=== PATIENT | female | born 1935 | race Caucasian/White ===

== ENCOUNTER 2021-04-30 14:21 | Inpatient (IN) | payer OTHER, MEDICARE ==
[2021-04-30 14:49] LABS: #Basophils 0.1 thou/uL (0.0-0.2); #Eosinphils 0.3 thou/uL (0.0-0.7); #Lymphocytes 1.7 thou/uL (1.20-3.40); #Neutrophils 6.9 thou/uL (1.40-6.50); %Basophils 0.6 % (0.0-1.0); %Eosinophils 3.3 % (0.0-10.0); %Lymphocytes 17.4 % (21.0-51.0); %Monocytes 9.7 % (0.0-10.0); Hemoglobin 12.6 g/dL (12.0-16.0); Mean Corpuscular HGB CONC 33.5 g/dL (32.0-36.0); Mean Corpuscular Hemoglobin 32.8 pg (27.0-31.0); Mean Corpuscular Volume 98.1 fL (78.0-98.0); Platelet Count 216 thou/uL (130-400); RBC Distribution Width 12.4 % (11.5-14.5); Red Blood Cell (RBC) Count 3.83 mill/uL (4.20-5.40); White Blood Cell (WBC) Count 9.9 thou/uL (4.8-10.8)
[2021-04-30] MEDS ORDERED: niCARdipine 20MG In NaCl 20 MG/200 ML BAG ONE ×2 (14:55→19:54)
[2021-04-30 14:57] LABS: INR-International Normal Ratio 1.1; Prothrombin Time 14.3 sec (12.0-14.7)
[2021-04-30 14:58] LABS: PTT 25.4 sec (22.9-36.1)
[2021-04-30 15:24] LABS: ALT (SGPT) 15 U/L (8-55); AST (SGOT) 32 U/L (5-34); Albumin 3.7 g/dL (3.4-4.8); Alkaline Phosphatase 125 U/L (40-110); Anion Gap 16 mmol/L (10-20); BUN (Urea Nitrogen) 17 mg/dL (9.8-20.1); Bilirubin, Total 0.5 mg/dL (0.2-1.2); Calc. Creatinine Clearance 0 mL/min (70-130); Calcium 9.2 mg/dL (7.8-10.44); Carbon Dioxide 21 mmol/L (23-31); Chloride 100 mmol/L (98-107); Glucose 212 mg/dL (83-110); Protein, Total 6.7 g/dL (5.8-8.1); Sodium 133 mmol/L (136-145)
[2021-04-30] MEDS ORDERED: Acetaminophen 650 MG Suppository ONE (16:58)
[2021-04-30] MEDS ORDERED: Promethazine HCl 25 MG/ML VIAL ONE (17:07)
[2021-04-30] MEDS ORDERED: Dextrose 50% Abboject 50 ML SYRINGE SLOW IVP PRN (17:34)
[2021-04-30] MEDS ORDERED: hydrALAZINE 20 MG/ML VIAL SLOW IVP PRN (17:34)
[2021-04-30] MEDS ORDERED: Dextrose 5% in Water 1,000 ML IV PRN (17:34)
[2021-04-30] MEDS ORDERED: Acetaminophen 650 MG Suppository PR PRN (17:40)
[2021-04-30 18:25] LABS: SARS-CoV-2 NAA Rapid Test Not Detected (NotDetected)
[2021-04-30 20:28] LABS: Bacteria/HPF None Seen HPF (None Seen); Bilirubin Negative (Negative); Blood, Urine Trace (Negative); Clarity Clear (Clear); Glucose, Urine (Dipstick) 200 mg/dL (Negative); Ketone, Urine 10 mg/dL (Negative); Leukocyte Negative Leu/uL (Negative); Mucous/LPF Rare LPF (<2+); Nitrite Negative (Negative); Protein, Urine (Dipstick) 70 mg/dL (Neg-Trace); Specific Gravity, Urine 1.009 (1.002-1.036); Squamous Epithelial None Seen HPF (0-3); Urobilinogen Normal mg/dL (Less than 2); WBC/HPF None Seen HPF (0-3)
[2021-04-30] MEDS ORDERED: Famotidine/PF 20 mg/2ml Vial SLOW IVP SCH (21:00)
[2021-04-30] MEDS ORDERED: Famotidine/PF 20 mg/2ml Vial ONE (21:03)
[2021-04-30] MEDS ORDERED: Fentanyl 100 MCG/2 ML VIAL ONE (22:06)
[2021-04-30] MEDS ORDERED: Insulin Regular 300 UNITS/3 ML VIAL ONE (22:06)
[2021-04-30] MEDS: Insulin Regular 300 UNITS/3 ML VIAL SC PRN (22:08)
[2021-04-30] MEDS: Fentanyl 100 MCG/2 ML VIAL SLOW IVP PRN (22:11)
[2021-04-30] MEDS ORDERED: Ondansetron PF 4 MG/2 ML Vial ONE (22:17)
[2021-04-30] MEDS: Ondansetron PF 4 MG/2 ML Vial IVP PRN (22:18)
[2021-04-30] MEDS: Sodium Chloride 0.9% 1,000 ML IV SCH (23:00)
[2021-05-01] MEDS: Fentanyl 100 MCG/2 ML VIAL SLOW IVP PRN (01:05)
[2021-05-01] MEDS: niCARdipine 25 MG in Sodium Chloride 0.9% 250 ML 240 ML IVPB SCH ×3 (01:35→12:36)
[2021-05-01] MEDS: Morphine 4 MG/ML VIAL SLOW IVP PRN ×4 (02:24→18:23)
[2021-05-01] MEDS: Sodium Chloride 0.9% 1,000 ML IV SCH (03:51)
[2021-05-01 03:52] LABS: INR-International Normal Ratio 1.2; Prothrombin Time 15.3 sec (12.0-14.7)
[2021-05-01 03:53] LABS: #Basophils 0.1 thou/uL (0.0-0.2); #Lymphocytes 0.7 thou/uL (1.20-3.40); #Neutrophils 10.7 thou/uL (1.40-6.50); %Lymphocytes 5.7 % (21.0-51.0); %Monocytes 7.7 % (0.0-10.0); %Neutrophils 85.5 % (42.0-75.0); Hemoglobin 12.7 g/dL (12.0-16.0); Mean Corpuscular HGB CONC 33.3 g/dL (32.0-36.0); Mean Corpuscular Hemoglobin 33.3 pg (27.0-31.0); Mean Corpuscular Volume 99.9 fL (78.0-98.0); Mean Platelet Volume 7.5 fL (7.4-10.4); Platelet Count 284 thou/uL (130-400); RBC Distribution Width 12.4 % (11.5-14.5); Red Blood Cell (RBC) Count 3.82 mill/uL (4.20-5.40); White Blood Cell (WBC) Count 12.6 thou/uL (4.8-10.8)
[2021-05-01 03:58] LABS: Phosphorus 4.1 mg/dL (2.3-4.7)
[2021-05-01 04:00] LABS: Anion Gap 17 mmol/L (10-20); BUN (Urea Nitrogen) 14 mg/dL (9.8-20.1); Calc. Creatinine Clearance 0 mL/min (70-130); Calcium 8.7 mg/dL (7.8-10.44); Carbon Dioxide 18 mmol/L (23-31); Chloride 98 mmol/L (98-107); Glucose 185 mg/dL (83-110); Magnesium 1.1 mg/dL (1.6-2.6); Potassium 3.8 mmol/L (3.5-5.1); Sodium 129 mmol/L (136-145)
[2021-05-01] MEDS: Insulin Regular 300 UNITS/3 ML VIAL SC PRN ×3 (05:20→16:48)
[2021-05-01] MEDS ORDERED: Potassium Chloride 20 MEQ in Premix Bag 1 BAG IVPB SCH (07:30)
[2021-05-01] MEDS ORDERED: Magnesium Sulfate 4 GM, Potassium Chloride 20 MEQ in Sodium Chloride 0.9% 250 ML 250 ML IVPB SCH (07:31)
[2021-05-01] MEDS ORDERED: Sodium Chloride 3% 500 ML IVPB SCH (08:45)
[2021-05-01] MEDS ORDERED: Famotidine/PF 20 mg/2ml Vial SLOW IVP SCH (09:00)
[2021-05-01] MEDS ORDERED: FLU VACC QS2021-22(65YR UP)/PF 240 MCG/0.7 ML SYRINGE IM ONE (09:00)
[2021-05-01 09:53] LABS: Sodium 131 mmol/L (136-145)
[2021-05-01] MEDS: Dexamethasone 4 mg/ml Vial SLOW IVP SCH ×2 (10:04→18:25)
[2021-05-01] MEDS: Ondansetron PF 4 MG/2 ML Vial IVP PRN ×2 (10:04→18:23)
[2021-05-01] MEDS: Famotidine/PF 20 mg/2ml Vial SLOW IVP SCH (10:07)
[2021-05-01 13:47] LABS: Sodium 135 mmol/L (136-145)
[2021-05-01 18:12] LABS: Anion Gap 14 mmol/L (10-20); BUN (Urea Nitrogen) 17 mg/dL (9.8-20.1); Calc. Creatinine Clearance 52 mL/min (70-130); Calcium 8.5 mg/dL (7.8-10.44); Carbon Dioxide 21 mmol/L (23-31); Chloride 106 mmol/L (98-107); Glucose 224 mg/dL (83-110); Magnesium 2.2 mg/dL (1.6-2.6); Phosphorus 2.9 mg/dL (2.3-4.7); Potassium 3.4 mmol/L (3.5-5.1); Sodium 138 mmol/L (136-145)
[2021-05-01 21:54] LABS: Sodium 139 mmol/L (136-145)
[2021-05-02] MEDS: Insulin Regular 300 UNITS/3 ML VIAL SC PRN ×5 (00:56→23:41)
[2021-05-02] MEDS: Dexamethasone 4 mg/ml Vial SLOW IVP SCH ×5 (01:37→23:36)
[2021-05-02] MEDS: Morphine 4 MG/ML VIAL SLOW IVP PRN (01:38)
[2021-05-02 02:11] LABS: Sodium 143 mmol/L (136-145)
[2021-05-02 05:27] LABS: #Basophils 0.1 thou/uL (0.0-0.2); #Lymphocytes 0.6 thou/uL (1.20-3.40); #Monocytes 1.2 thou/uL (0.11-0.59); #Neutrophils 11.3 thou/uL (1.40-6.50); %Basophils 0.4 % (0.0-1.0); %Lymphocytes 4.5 % (21.0-51.0); %Monocytes 8.8 % (0.0-10.0); %Neutrophils 86.2 % (42.0-75.0); Hemoglobin 11.1 g/dL (12.0-16.0); Mean Corpuscular HGB CONC 33.5 g/dL (32.0-36.0); Mean Corpuscular Hemoglobin 32.7 pg (27.0-31.0); Mean Corpuscular Volume 97.7 fL (78.0-98.0); Mean Platelet Volume 7.4 fL (7.4-10.4); Platelet Count 272 thou/uL (130-400); RBC Distribution Width 12.5 % (11.5-14.5); Red Blood Cell (RBC) Count 3.39 mill/uL (4.20-5.40); White Blood Cell (WBC) Count 13.1 thou/uL (4.8-10.8)
[2021-05-02 05:39] LABS: INR-International Normal Ratio 1.2; Prothrombin Time 15.6 sec (12.0-14.7)
[2021-05-02 05:40] LABS: PTT 24.6 sec (22.9-36.1)
[2021-05-02 05:56] LABS: Anion Gap 16 mmol/L (10-20); BUN (Urea Nitrogen) 22 mg/dL (9.8-20.1); Calc. Creatinine Clearance 52 mL/min (70-130); Calcium 8.3 mg/dL (7.8-10.44); Carbon Dioxide 21 mmol/L (23-31); Chloride 112 mmol/L (98-107); Glucose 185 mg/dL (83-110); Phosphorus 4.7 mg/dL (2.3-4.7); Potassium 3.8 mmol/L (3.5-5.1); Sodium 145 mmol/L (136-145)
[2021-05-02] MEDS: Sodium Chloride 0.9% 1,000 ML IV SCH ×2 (09:22→23:36)
[2021-05-02 09:40] LABS: Sodium 145 mmol/L (136-145)
[2021-05-02] MEDS: niCARdipine 25 MG in Sodium Chloride 0.9% 250 ML 240 ML IVPB SCH ×2 (09:54→20:31)
[2021-05-02] MEDS: Famotidine/PF 20 mg/2ml Vial SLOW IVP SCH (10:14)
[2021-05-02 13:40] LABS: Sodium 145 mmol/L (136-145)
[2021-05-02] MEDS ORDERED: Amlodipine 5 MG TAB PO SCH (17:15)
[2021-05-02 18:21] LABS: Sodium 147 mmol/L (136-145)
[2021-05-03] MEDS: niCARdipine 25 MG in Sodium Chloride 0.9% 250 ML 240 ML IVPB SCH ×2 (01:25→06:30)
[2021-05-03 04:56] LABS: #Lymphocytes 0.8 thou/uL (1.20-3.40); #Neutrophils 12.8 thou/uL (1.40-6.50); %Basophils 0.1 % (0.0-1.0); %Eosinophils 0.1 % (0.0-10.0); %Lymphocytes 5.4 % (21.0-51.0); %Monocytes 7.1 % (0.0-10.0); %Neutrophils 87.4 % (42.0-75.0); Mean Corpuscular Hemoglobin 33.3 pg (27.0-31.0); Mean Platelet Volume 7.6 fL (7.4-10.4); Platelet Count 270 thou/uL (130-400); RBC Distribution Width 12.7 % (11.5-14.5); Red Blood Cell (RBC) Count 3.29 mill/uL (4.20-5.40); White Blood Cell (WBC) Count 14.7 thou/uL (4.8-10.8)
[2021-05-03] MEDS: Insulin Regular 300 UNITS/3 ML VIAL SC PRN ×2 (05:10→18:19)
[2021-05-03 06:19] LABS: Anion Gap 13 mmol/L (10-20); BUN (Urea Nitrogen) 35 mg/dL (9.8-20.1); Calc. Creatinine Clearance 50 mL/min (70-130); Calcium 8.7 mg/dL (7.8-10.44); Carbon Dioxide 22 mmol/L (23-31); Chloride 117 mmol/L (98-107); Glucose 182 mg/dL (83-110); Magnesium 1.9 mg/dL (1.6-2.6); Phosphorus 2.9 mg/dL (2.3-4.7); Potassium 3.6 mmol/L (3.5-5.1); Sodium 148 mmol/L (136-145)
[2021-05-03] MEDS: Dexamethasone 4 mg/ml Vial SLOW IVP SCH ×4 (06:31→23:00)
[2021-05-03] MEDS: Amlodipine 5 MG TAB PO SCH (07:14)
[2021-05-03] MEDS: Famotidine/PF 20 mg/2ml Vial SLOW IVP SCH (07:14)
[2021-05-03] MEDS ORDERED: Dextrose 5% in Water 1,000 ML IV SCH (08:00)
[2021-05-03] MEDS ORDERED: Sodium Chloride 0.9% 1,000 ML IV SCH (11:45)
[2021-05-03] MEDS: Carvedilol 6.25 MG TAB PO SCH ×2 (12:24→20:46)
[2021-05-03] MEDS: Lisinopril 20 MG TAB PO SCH (20:45)
[2021-05-03] MEDS ORDERED: Carvedilol 6.25 MG TAB PO SCH (21:00)
[2021-05-03] MEDS: Senokot S 8.6-50 MG TAB PO SCH (22:22)
[2021-05-04] MEDS: Insulin Regular 300 UNITS/3 ML VIAL SC PRN ×2 (00:31→05:11)
[2021-05-04] MEDS: Dexamethasone 4 mg/ml Vial SLOW IVP SCH ×3 (05:02→18:53)
[2021-05-04 05:25] LABS: #Neutrophils 10.7 thou/uL (1.40-6.50); %Basophils 0.2 % (0.0-1.0); %Eosinophils 0.2 % (0.0-10.0); %Lymphocytes 7.6 % (21.0-51.0); %Neutrophils 84.1 % (42.0-75.0); Hemoglobin 11.7 g/dL (12.0-16.0); Mean Corpuscular HGB CONC 32.7 g/dL (32.0-36.0); Mean Corpuscular Hemoglobin 32.2 pg (27.0-31.0); Mean Corpuscular Volume 98.3 fL (78.0-98.0); Mean Platelet Volume 7.4 fL (7.4-10.4); Platelet Count 278 thou/uL (130-400); RBC Distribution Width 12.7 % (11.5-14.5); Red Blood Cell (RBC) Count 3.65 mill/uL (4.20-5.40); White Blood Cell (WBC) Count 12.7 thou/uL (4.8-10.8)
[2021-05-04 05:42] LABS: Anion Gap 14 mmol/L (10-20); BUN (Urea Nitrogen) 29 mg/dL (9.8-20.1); Calc. Creatinine Clearance 52 mL/min (70-130); Calcium 8.9 mg/dL (7.8-10.44); Carbon Dioxide 25 mmol/L (23-31); Chloride 112 mmol/L (98-107); Glucose 219 mg/dL (83-110); Magnesium 1.5 mg/dL (1.6-2.6); Potassium 3.2 mmol/L (3.5-5.1); Sodium 148 mmol/L (136-145)
[2021-05-04] MEDS ORDERED: Potassium Phosphate 30 MMOL in Sodium Chloride 0.9% 500 ML IVPB SCH (07:45)
[2021-05-04] MEDS ORDERED: Magnesium Sulfate 4 GM, Potassium Phosphate 30 MMOL in Sodium Chloride 0.9% 250 ML 250 ML IVPB SCH (07:45)
[2021-05-04] MEDS: Famotidine/PF 20 mg/2ml Vial SLOW IVP SCH (08:12)
[2021-05-04] MEDS: Polyethylene Glycol 3350 17 GM Packet PO SCH (08:12)
[2021-05-04] MEDS: Carvedilol 6.25 MG TAB PO SCH (08:13)
[2021-05-04] MEDS: Senokot S 8.6-50 MG TAB PO SCH (08:13)
[2021-05-04] MEDS: Amlodipine 5 MG TAB PO SCH (08:13)
[2021-05-04 08:45] LABS: Troponin I 0.023 ng/mL (< 0.028)
[2021-05-04] MEDS ORDERED: Metoprolol Tartrate 5 MG/5 ML VIAL IVP SCH ×2 (08:45→23:59)
[2021-05-04] MEDS ORDERED: Hydrochlorothiazide 25 MG TAB PO SCH (09:00)
[2021-05-04] MEDS: Labetalol HCl 100 MG/20 ML VIAL SLOW IVP PRN (11:24)
[2021-05-04] MEDS: hydrALAZINE 20 MG/ML VIAL SLOW IVP PRN (15:07)
[2021-05-04] MEDS: Morphine 4 MG/ML VIAL SLOW IVP PRN (19:12)
[2021-05-05] MEDS: Dexamethasone 4 mg/ml Vial SLOW IVP SCH ×5 (01:22→23:42)
[2021-05-05] MEDS: Carvedilol 6.25 MG TAB PO SCH ×3 (02:09→20:03)
[2021-05-05] MEDS: Hydrochlorothiazide 25 MG TAB PO SCH ×3 (02:10→20:02)
[2021-05-05] MEDS: Lisinopril 20 MG TAB PO SCH ×2 (02:10→20:02)
[2021-05-05] MEDS: Senokot S 8.6-50 MG TAB PO SCH ×3 (02:10→20:02)
[2021-05-05] MEDS: hydrALAZINE 20 MG/ML VIAL SLOW IVP PRN ×2 (02:12→08:49)
[2021-05-05 05:21] LABS: #Lymphocytes 0.7 thou/uL (1.20-3.40); #Neutrophils 9.7 thou/uL (1.40-6.50); %Lymphocytes 6.3 % (21.0-51.0); %Monocytes 8.4 % (0.0-10.0); %Neutrophils 85.3 % (42.0-75.0); Hemoglobin 12.5 g/dL (12.0-16.0); Mean Corpuscular HGB CONC 32.9 g/dL (32.0-36.0); Mean Corpuscular Hemoglobin 32.3 pg (27.0-31.0); Mean Corpuscular Volume 98.3 fL (78.0-98.0); Mean Platelet Volume 7.7 fL (7.4-10.4); Platelet Count 282 thou/uL (130-400); RBC Distribution Width 12.7 % (11.5-14.5); Red Blood Cell (RBC) Count 3.86 mill/uL (4.20-5.40); White Blood Cell (WBC) Count 11.4 thou/uL (4.8-10.8)
[2021-05-05 05:41] LABS: Anion Gap 16 mmol/L (10-20); BUN (Urea Nitrogen) 39 mg/dL (9.8-20.1); Calc. Creatinine Clearance 50 mL/min (70-130); Calcium 9.1 mg/dL (7.8-10.44); Carbon Dioxide 25 mmol/L (23-31); Chloride 112 mmol/L (98-107); Glucose 276 mg/dL (83-110); Magnesium 2.3 mg/dL (1.6-2.6); Phosphorus 4.3 mg/dL (2.3-4.7); Sodium 149 mmol/L (136-145)
[2021-05-05] MEDS: Famotidine/PF 20 mg/2ml Vial SLOW IVP SCH (08:49)
[2021-05-05] MEDS: Amlodipine 5 MG TAB PO SCH (08:49)
[2021-05-05] MEDS: Polyethylene Glycol 3350 17 GM Packet PO SCH (08:50)
[2021-05-05] MEDS ORDERED: Labetalol HCl 100 MG/20 ML VIAL SLOW IVP SCH (10:30)
[2021-05-05] MEDS: Morphine 4 MG/ML VIAL SLOW IVP PRN (16:34)
[2021-05-05] MEDS: Labetalol HCl 100 MG/20 ML VIAL SLOW IVP PRN ×2 (17:12→19:10)
[2021-05-05] MEDS: Insulin Regular 300 UNITS/3 ML VIAL SC PRN ×2 (19:09→23:50)
[2021-05-05] MEDS: Lantus 1000 UNITS/10 ML VIAL SC SCH (20:15)
[2021-05-06] MEDS: Labetalol HCl 100 MG/20 ML VIAL SLOW IVP PRN ×3 (01:07→18:07)
[2021-05-06] MEDS: Morphine 4 MG/ML VIAL SLOW IVP PRN (03:22)
[2021-05-06 03:50] LABS: #Lymphocytes 0.8 thou/uL (1.20-3.40); #Monocytes 0.8 thou/uL (0.11-0.59); #Neutrophils 12.1 thou/uL (1.40-6.50); %Basophils 0.2 % (0.0-1.0); %Eosinophils 0.1 % (0.0-10.0); %Lymphocytes 5.8 % (21.0-51.0); %Neutrophils 87.9 % (42.0-75.0); Hemoglobin 12.9 g/dL (12.0-16.0); Mean Corpuscular HGB CONC 33.1 g/dL (32.0-36.0); Mean Corpuscular Hemoglobin 32.6 pg (27.0-31.0); Mean Corpuscular Volume 98.4 fL (78.0-98.0); Mean Platelet Volume 7.8 fL (7.4-10.4); Platelet Count 248 thou/uL (130-400); RBC Distribution Width 12.4 % (11.5-14.5); Red Blood Cell (RBC) Count 3.97 mill/uL (4.20-5.40); White Blood Cell (WBC) Count 13.7 thou/uL (4.8-10.8)
[2021-05-06 04:11] LABS: Anion Gap 13 mmol/L (10-20); BUN (Urea Nitrogen) 55 mg/dL (9.8-20.1); Calc. Creatinine Clearance 51 mL/min (70-130); Carbon Dioxide 29 mmol/L (23-31); Chloride 110 mmol/L (98-107); Glucose 232 mg/dL (83-110); Phosphorus 4.1 mg/dL (2.3-4.7); Potassium 3.5 mmol/L (3.5-5.1); Sodium 148 mmol/L (136-145)
[2021-05-06] MEDS: Dexamethasone 4 mg/ml Vial SLOW IVP SCH ×4 (05:19→23:31)
[2021-05-06] MEDS: Carvedilol 6.25 MG TAB PO SCH ×3 (05:22→20:20)
[2021-05-06] MEDS: Insulin Regular 300 UNITS/3 ML VIAL SC PRN ×3 (05:26→23:31)
[2021-05-06] MEDS ORDERED: Potassium Phosphate 30 MMOL in Sodium Chloride 0.9% 250 ML 250 ML IVPB SCH (07:30)
[2021-05-06] MEDS: Hydrochlorothiazide 25 MG TAB PO SCH ×2 (08:10→20:20)
[2021-05-06] MEDS: Amlodipine 5 MG TAB PO SCH (08:10)
[2021-05-06] MEDS: Famotidine/PF 20 mg/2ml Vial SLOW IVP SCH (08:10)
[2021-05-06] MEDS: Senokot S 8.6-50 MG TAB PO SCH ×2 (08:17→20:20)
[2021-05-06] MEDS: Lantus 1000 UNITS/10 ML VIAL SC SCH ×3 (08:17→20:36)
[2021-05-06] MEDS ORDERED: cefTRIAXone\\ROCEPHIN 1 GM VIAL ONE (08:58)
[2021-05-06] MEDS ORDERED: Sodium Chloride 0.9% 100 ML ONE (08:58)
[2021-05-06] MEDS ORDERED: PHENYLEPHRINE-NS 100 MCG/ML 10 ML SYRINGE ONE (09:33)
[2021-05-06] MEDS ORDERED: PROPOFOL 200 MG/20 ML VIAL ONE (09:33)
[2021-05-06] MEDS: Polyethylene Glycol 3350 17 GM Packet PO SCH (10:37)
[2021-05-06 11:41] VITALS: BMI 19.3
[2021-05-06] MEDS: Lisinopril 20 MG TAB PO SCH (20:21)
[2021-05-06] MEDS: Ondansetron PF 4 MG/2 ML Vial IVP PRN (21:23)
[2021-05-07] MEDS ORDERED: Sodium Chloride 0.9% 1,000 ML IV SCH (02:30)
[2021-05-07] MEDS: Dexamethasone 4 mg/ml Vial SLOW IVP SCH ×2 (06:05→13:45)
[2021-05-07] MEDS: Insulin Regular 300 UNITS/3 ML VIAL SC PRN ×2 (06:13→13:47)
[2021-05-07] MEDS: Senokot S 8.6-50 MG TAB PO SCH (08:01)
[2021-05-07] MEDS: Hydrochlorothiazide 25 MG TAB PO SCH (08:01)
[2021-05-07] MEDS: Polyethylene Glycol 3350 17 GM Packet PO SCH (08:01)
[2021-05-07] MEDS: Carvedilol 6.25 MG TAB PO SCH (08:02)
[2021-05-07] MEDS: Amlodipine 5 MG TAB PO SCH (08:02)
[2021-05-07] MEDS: Lantus 1000 UNITS/10 ML VIAL SC SCH (08:03)
[2021-05-07 08:04] VITALS: BP 146/86
[2021-05-07] MEDS: Labetalol HCl 100 MG/20 ML VIAL SLOW IVP PRN (08:29)
[2021-05-07] MEDS ORDERED: Pantoprazole 40 MG VIAL IVP SCH (09:00)
[2021-05-07] MEDS ORDERED: Lantus 1000 UNITS/10 ML VIAL SC SCH (09:00)
[2021-05-07] MEDS ORDERED: Lidocaine 1% (PF) 30 ML VIAL ONE (11:37)
[2021-05-07] MEDS ORDERED: Lactated Ringer's 1,000 ML IV SCH (12:45)
[2021-05-07 12:53] VITALS: TEMP 97.4
== END 2021-05-07 17:46 | disposition expired | DRG 82 ==
LOC: ERS 14:21 → ERHOLD 17:34 → CCU 23:27 → IMCU/EMU 05-03 10:51
PROVIDERS: ADMIT Surgery; ATTEND Surgery
PROC: 6A550Z2 Pheresis of Platelets, Single (ICD-10-PCS; 2021-04-30)
PROC: 30233R0 Transfusion of Autologous Platelets into Peripheral Vein, Percutaneous Approach (ICD-10-PCS; 2021-04-30)
PROC: 0DH67UZ Insertion of Feeding Device into Stomach, Via Natural or Artificial Opening (ICD-10-PCS; 2021-04-30)
PROC: 3E0G76Z Introduction of Nutritional Substance into Upper GI, Via Natural or Artificial Opening (ICD-10-PCS; 2021-04-30)
PROC: 02HV33Z Insertion of Infusion Device into Superior Vena Cava, Percutaneous Approach (ICD-10-PCS; 2021-05-01)
PROC: 0DH63UZ Insertion of Feeding Device into Stomach, Percutaneous Approach (ICD-10-PCS; principal; 2021-05-06)
PROC: 06H03DZ Insertion of Intraluminal Device into Inferior Vena Cava, Percutaneous Approach (ICD-10-PCS; 2021-05-07)
DX: J96.90 Respiratory failure, unspecified, unspecified whether with hypoxia or hypercapnia; E44.0 Moderate protein-calorie malnutrition; E87.1 Hypo-osmolality and hyponatremia; Z20.822 Contact with and (suspected) exposure to COVID-19; Z66 Do not resuscitate; E87.0 Hyperosmolality and hypernatremia; D62 Acute posthemorrhagic anemia; F05 Delirium due to known physiological condition; G81.94 Hemiplegia, unspecified affecting left nondominant side; R41.4 Neurologic neglect syndrome; I82.413 Acute embolism and thrombosis of femoral vein, bilateral; I82.442 Acute embolism and thrombosis of left tibial vein; Z68.1 Body mass index [BMI] 19.9 or less, adult; E78.00 Pure hypercholesterolemia, unspecified; Z96.652 Presence of left artificial knee joint; E78.5 Hyperlipidemia, unspecified; W01.0XXA Fall on same level from slipping, tripping and stumbling without subsequent striking against object, initial encounter; K29.60 Other gastritis without bleeding; S00.03XA Contusion of scalp, initial encounter; I25.10 Atherosclerotic heart disease of native coronary artery without angina pectoris; R40.2352 Coma scale, best motor response, localizes pain, at arrival to emergency department; R40.2132 Coma scale, eyes open, to sound, at arrival to emergency department; R40.2242 Coma scale, best verbal response, confused conversation, at arrival to emergency department; E87.6 Hypokalemia; E83.42 Hypomagnesemia; I11.0 Hypertensive heart disease with heart failure; I50.9 Heart failure, unspecified; S42.032A Displaced fracture of lateral end of left clavicle, initial encounter for closed fracture; R13.12 Dysphagia, oropharyngeal phase; I48.91 Unspecified atrial fibrillation; E11.65 Type 2 diabetes mellitus with hyperglycemia; Y92.008 Other place in unspecified non-institutional (private) residence as the place of occurrence of the external cause; Z78.1 Physical restraint status; Z95.5 Presence of coronary angioplasty implant and graft; Z90.710 Acquired absence of both cervix and uterus; Z79.899 Other long term (current) drug therapy; Z88.6 Allergy status to analgesic agent; Z88.1 Allergy status to other antibiotic agents; Z88.5 Allergy status to narcotic agent; Z88.2 Allergy status to sulfonamides; Z88.8 Allergy status to other drugs, medicaments and biological substances
CPT/HCPCS: 36415; 36416; 36430; 37191; 51702; 70450; 71045; 74018; 74022; 80048; 80053; 81003; 81015; 83735; 83880; 84100; 84295; 84484; 85025; 85610; 85730; 86850; 86900; 86901; 87086; 93005; 93010; 93970; 94760; 96365; 96366; 96375; C9113; G0390; J0360; J0696; J1100; J1815; J2001; J2270; J2405; J2550; J2704; J3010; J3475; J3480; J3490; J7030; J7050; J7070; J7120; J7131; P9035; S0028; U0002